=== PATIENT | female | born 1995 | race Caucasian/White ===

== ENCOUNTER 2021-10-03 18:04 | Day surgery (SDC) | payer BC ==
[2021-10-03] MEDS ORDERED: hydrALAZINE 20 MG/ML VIAL SLOW IVP PRN (18:32)
[2021-10-03 18:36] VITALS: BMI 37.2
== END 2021-10-03 19:20 | disposition home or self-care (01) ==
LOC: CSHLD/OP 18:04
PROVIDERS: ATTEND Obstetrics & Gynecology
DX: O99.891 Other specified diseases and conditions complicating pregnancy (principal); R07.9 Chest pain, unspecified; R06.02 Shortness of breath; R10.9 Unspecified abdominal pain; R19.7 Diarrhea, unspecified; M79.89 Other specified soft tissue disorders; Z3A.25 25 weeks gestation of pregnancy
CPT/HCPCS: 99282

== ENCOUNTER 2021-10-03 19:25 | Emergency (ER) | payer BC ==
[2021-10-03 20:15] LABS: #Eosinphils 0.1 10x3/uL (0.0-0.5); #Monocytes 0.5 10x3/uL (0.0-1.1); #Neutrophils 6.3 10x3/uL (1.5-8.4); %Basophils 0.3 % (0.0-2.0); %Eosinophils 0.5 % (0.0-6.0); %Lymphocytes 26.4 % (18.0-47.0); %Monocytes 5.4 % (0.0-10.0); %Neutrophils 67.1 % (40.0-75.0); Mean Corpuscular HGB CONC 34.6 g/dL (32.0-36.0); Mean Corpuscular Hemoglobin 30.1 pg (27.0-33.0); Mean Corpuscular Volume 87.1 fl (81.6-98.3); Mean Platelet Volume 9.8 fl (7.4-10.4); Platelet Count 279 10x3/uL (150-450); RBC Distribution Width 13.6 % (11.5-14.5); Red Blood Cell (RBC) Count 3.65 10x6/uL (3.90-5.03); White Blood Cell (WBC) Count 9.4 10x3/uL (3.5-10.5)
[2021-10-03 20:29] LABS: ALT (SGPT) 10 U/L (8-55); AST (SGOT) 11 U/L (5-34); Albumin 3.6 g/dL (3.5-5.0); Alkaline Phosphatase 76 U/L (40-110); Anion Gap 14 mmol/L (10-20); BUN (Urea Nitrogen) 6 mg/dL (7.0-18.7); Bilirubin, Total 0.2 mg/dL (0.2-1.2); Calc. Creatinine Clearance 0 mL/min (70-130); Calcium 8.9 mg/dL (7.8-10.44); Carbon Dioxide 24 mmol/L (22-29); Chloride 104 mmol/L (98-107); Globulin 2.7 g/dL (2.4-3.5); Glucose 99 mg/dL (70-105); Potassium 3.7 mmol/L (3.5-5.1); Protein, Total 6.3 g/dL (6.0-8.3); Sodium 138 mmol/L (136-145)
== END 2021-10-03 20:59 | disposition home or self-care (01) ==
LOC: CSHERS 19:25
DX: O99.891 Other specified diseases and conditions complicating pregnancy (principal); R06.02 Shortness of breath; Z3A.25 25 weeks gestation of pregnancy
CPT/HCPCS: 36415; 71045; 80053; 83880; 84484; 85025; 93005

== ENCOUNTER 2021-12-16 18:37 | Day surgery (SDC) | payer BC ==
[2021-12-16 19:15] VITALS: BMI 38.9
[2021-12-16] MEDS ORDERED: hydrALAZINE 20 MG/ML VIAL SLOW IVP PRN (19:38)
[2021-12-16] MEDS ORDERED: hydrOXYzine 25 MG TAB PO SCH (20:00)
[2021-12-16 20:28] LABS: Bilirubin Neg (Negative); Blood, Urine Negative (Negative); Clarity Clear (Clear); Glucose, Urine (Dipstick) Normal (Negative); Ketone, Urine 15 mg/dL (Negative); Leukocyte Negative (Negative); Nitrite Negative (Negative); Protein, Urine (Dipstick) Negative (Neg-Trace); Urobilinogen Normal mg/dL (Less than 2)
[2021-12-16 20:36] LABS: Bacteria/HPF None Seen HPF (None Seen); RBC/HPF 0-3 HPF (0-3); Squamous Epithelial None Seen HPF (0-3); Urine Culture Reflex No No; WBC/HPF 0-3 HPF (0-3)
[2021-12-16 20:43] LABS: ALT (SGPT) 8 U/L (8-55); AST (SGOT) 13 U/L (5-34); Albumin 3.2 g/dL (3.5-5.0); Alkaline Phosphatase 149 U/L (40-110); Anion Gap 15 mmol/L (10-20); BUN (Urea Nitrogen) 5 mg/dL (7.0-18.7); Bilirubin, Total 0.5 mg/dL (0.2-1.2); Calc. Creatinine Clearance 200 mL/min (70-130); Calcium 9.7 mg/dL (7.8-10.44); Carbon Dioxide 23 mmol/L (22-29); Chloride 103 mmol/L (98-107); Estimated GFR 124; Globulin 3.3 g/dL (2.4-3.5); Glucose 99 mg/dL (70-105); Potassium 3.6 mmol/L (3.5-5.1); Protein, Total 6.5 g/dL (6.0-8.3); Sodium 137 mmol/L (136-145)
== END 2021-12-16 22:25 | disposition home or self-care (01) ==
LOC: CSHLD/OP 18:37
PROVIDERS: ATTEND Obstetrics & Gynecology
DX: O26.893 Other specified pregnancy related conditions, third trimester (principal); L29.9 Pruritus, unspecified; O23.593 Infection of other part of genital tract in pregnancy, third trimester; N89.8 Other specified noninflammatory disorders of vagina; O36.8130 Decreased fetal movements, third trimester, not applicable or unspecified; O47.03 False labor before 37 completed weeks of gestation, third trimester; Z86.16 Personal history of COVID-19; Z79.82 Long term (current) use of aspirin; Z79.899 Other long term (current) drug therapy; Z3A.36 36 weeks gestation of pregnancy
CPT/HCPCS: 36415; 51701; 80053; 81001; 82239; 87480; 87510; 87660; 99284

== ENCOUNTER 2021-12-21 15:07 | Inpatient (IN) | payer BC ==
[~2021-12-21 15:07] MED LIST: Bupivacaine/Epinephrine 0.25% 30 ML VIAL ONE
[2021-12-21] MEDS ORDERED: Misoprostol 200 MCG TAB PR PRN (15:12)
[2021-12-21] MEDS ORDERED: Butorphanol Tartrate 1 MG/ML VIAL SLOW IVP PRN (15:12)
[2021-12-21] MEDS ORDERED: Acetaminophen 500 MG TAB PO PRN (15:12)
[2021-12-21] MEDS ORDERED: Ondansetron PF 4 MG/2 ML Vial IVP PRN (15:12)
[2021-12-21] MEDS ORDERED: Zolpidem Tartrate 5 MG TAB PO PRN (15:12)
[2021-12-21] MEDS ORDERED: hydrALAZINE 20 MG/ML VIAL SLOW IVP PRN (15:12)
[2021-12-21] MEDS ORDERED: Docusate 100 MG CAP PO PRN (15:12)
[2021-12-21] MEDS ORDERED: Ibuprofen 800 MG TAB PO PRN (15:12)
[2021-12-21] MEDS ORDERED: Diphenoxylate HCl/Atropine Tablet PO PRN ×2 (15:12)
[2021-12-21] MEDS ORDERED: Promethazine HCl 25 MG/ML VIAL IM PRN (15:12)
[2021-12-21] MEDS ORDERED: HYDROcodone/Acetaminophen 5/325 mg Tablet PO PRN ×2 (15:12)
[2021-12-21] MEDS ORDERED: Lidocaine 1% (PF) 30 ML VIAL SC PRN (15:12)
[2021-12-21] MEDS ORDERED: NS w/ Oxytocin 30 units 500 ML IV SCH ×2 (15:15)
[2021-12-21] MEDS ORDERED: hydrOXYzine Pamoate 25 mg Capsule PO PRN (15:21)
[2021-12-21] MEDS ORDERED: Penicillin G Potassium 5 MILL.UNITS in Sodium Chloride 0.9% 100 ML IVPB SCH (16:00)
[2021-12-21 16:03] VITALS: BMI 39.8
[2021-12-21] MEDS: Lactated Ringer's 1,000 ML IV SCH ×2 (16:30→17:18)
[2021-12-21] MEDS: Misoprostol 100 MCG TAB VAG SCH ×2 (17:01→20:26)
[2021-12-21 17:58] LABS: #Monocytes 0.6 10x3/uL (0.0-1.1); #Neutrophils 4.7 10x3/uL (1.5-8.4); %Basophils 0.3 % (0.0-2.0); %Eosinophils 0.4 % (0.0-6.0); %Lymphocytes 29.9 % (18.0-47.0); %Monocytes 7.2 % (0.0-10.0); %Neutrophils 61.7 % (40.0-75.0); Hemoglobin 9.6 g/dL (12.0-15.5); Mean Corpuscular HGB CONC 32.7 g/dL (32.0-36.0); Mean Corpuscular Hemoglobin 27.4 pg (27.0-33.0); Mean Corpuscular Volume 83.8 fl (81.6-98.3); Mean Platelet Volume 12.3 fl (7.4-10.4); Platelet Count 236 10x3/uL (150-450); RBC Distribution Width 13.7 % (11.5-14.5); Red Blood Cell (RBC) Count 3.51 10x6/uL (3.90-5.03); White Blood Cell (WBC) Count 7.7 10x3/uL (3.5-10.5)
[2021-12-21 18:06] LABS: ALT (SGPT) 8 U/L (8-55); AST (SGOT) 13 U/L (5-34); Albumin 3.1 g/dL (3.5-5.0); Alkaline Phosphatase 157 U/L (40-110); Bilirubin, Direct 0.1 mg/dL (0.1-0.3); Bilirubin, Total 0.3 mg/dL (0.2-1.2); Protein, Total 6.1 g/dL (6.0-8.3); Uric Acid 4.7 mg/dL (2.6-6.0)
[2021-12-21 18:24] LABS: Syphilis Antibody Nonreactive (Nonreactive); Syphilis Antibody Index 0.02 S/CO (<1.00 Non-Reactive)
[2021-12-21 18:31] LABS: HBSAg Index 0.21 S/CO (0-0.99); HIV (1/2) Antibody/Antigen Non-Reactive (NonReactive); HIV 1/2 INDEX 0.08 S/CO (<1.00); Hep B Surf Ag Non-Reactive S/CO (NonReactive)
[2021-12-21] MEDS ORDERED: Penicillin G 2.5 MILL.units 2.5 MILL.UNITS in Premix Bag 1 BAG IVPB SCH (20:00)
[2021-12-22] MEDS: Misoprostol 100 MCG TAB VAG SCH (01:42)
[2021-12-22] MEDS ORDERED: Fentanyl 2 mcg/Bup 0.1% Cadd 100 ML ONE ×2 (08:21→15:42)
[2021-12-22] MEDS ORDERED: Fentanyl 2 mcg/Bupivacaine 0.1% Cassette 100 ML EPIDURAL SCH (08:30)
[2021-12-22] MEDS ORDERED: Ondansetron PF 4 MG/2 ML Vial IVP PRN ×2 (08:30→18:26)
[2021-12-22] MEDS ORDERED: Naloxone HCl 0.4 mg/ml Vial IVP PRN ×2 (08:30)
[2021-12-22] MEDS ORDERED: Promethazine HCl 25 MG/ML VIAL IM PRN (08:30)
[2021-12-22] MEDS ORDERED: diphenhydrAMINE 50 MG/ML VIAL IVP PRN (08:30)
[2021-12-22] MEDS ORDERED: ePHEDrine Sulfate 50 MG/10 ML VIAL SLOW IVP PRN (08:30)
[2021-12-22] MEDS ORDERED: Acetaminophen 325 MG TAB PO PRN (08:30)
[2021-12-22] MEDS ORDERED: Lactated Ringer's 500 ML IV PRN (08:30)
[2021-12-22] MEDS ORDERED: Moisturizing Cream (Eucerin) 113 GM JAR TOP PRN (08:30)
[2021-12-22] MEDS ORDERED: Communication Order-Pharmacy FS SCH (08:30)
[2021-12-22] MEDS ORDERED: Fentanyl 100 MCG/2 ML VIAL ONE (16:58)
[2021-12-22] MEDS ORDERED: Preparation H Ointment 28 GM TUBE PR PRN (18:26)
[2021-12-22] MEDS ORDERED: Zolpidem Tartrate 5 MG TAB PO PRN (18:26)
[2021-12-22] MEDS ORDERED: Misoprostol 200 MCG TAB VAG PRN (18:26)
[2021-12-22] MEDS ORDERED: Bisacodyl 10 MG SUPP PR PRN (18:26)
[2021-12-22] MEDS ORDERED: diphenhydrAMINE 25 MG CAP PO PRN (18:26)
[2021-12-22] MEDS ORDERED: Benzocaine-Menthol 82.5 ML CAN TOP PRN (18:26)
[2021-12-22] MEDS ORDERED: HYDROcodone/Acetaminophen 5/325 mg Tablet PO PRN ×2 (18:26)
[2021-12-22] MEDS ORDERED: Milk Of Magnesia 30 ML UDCUP PO PRN (18:26)
[2021-12-22] MEDS ORDERED: Lanolin Ointment 7 GM TUBE TOP PRN (18:26)
[2021-12-22] MEDS ORDERED: Boostrix 0.5 ML (Tdap) VIAL (>/=7 yrs of age) IM ONE (18:26)
[2021-12-22] MEDS ORDERED: hydrALAZINE 20 MG/ML VIAL SLOW IVP PRN (18:26)
[2021-12-22] MEDS ORDERED: NS w/ Oxytocin 30 units 500 ML IV SCH (18:30)
[2021-12-22] MEDS: Docusate 100 MG CAP PO SCH (22:54)
[2021-12-22] MEDS: Ibuprofen 800 MG TAB PO SCH (22:54)
[2021-12-23] MEDS: Ibuprofen 800 MG TAB PO SCH ×3 (05:14→21:36)
[2021-12-23 05:28] LABS: Hemoglobin 8.4 g/dL (12.0-15.5); Mean Corpuscular HGB CONC 33.3 g/dL (32.0-36.0); Mean Corpuscular Hemoglobin 27.7 pg (27.0-33.0); Mean Corpuscular Volume 83.2 fl (81.6-98.3); Mean Platelet Volume 12.5 fl (7.4-10.4); Platelet Count 210 10x3/uL (150-450); RBC Distribution Width 13.9 % (11.5-14.5); Red Blood Cell (RBC) Count 3.03 10x6/uL (3.90-5.03); White Blood Cell (WBC) Count 12.1 10x3/uL (3.5-10.5)
[2021-12-23] MEDS: Prenatal Vitamin 1 TAB PO SCH (08:55)
[2021-12-23] MEDS: Docusate 100 MG CAP PO SCH ×2 (08:55→21:36)
[2021-12-23] MEDS: Ferrous Sulfate 325 MG TAB PO SCH ×2 (08:55→18:36)
[2021-12-24] MEDS: Ibuprofen 800 MG TAB PO SCH ×2 (05:46→13:36)
[2021-12-24] MEDS: Prenatal Vitamin 1 TAB PO SCH (08:49)
[2021-12-24] MEDS: Ferrous Sulfate 325 MG TAB PO SCH (08:49)
[2021-12-24] MEDS: Docusate 100 MG CAP PO SCH (08:49)
[2021-12-24 10:38] VITALS: TEMP 98.1
[2021-12-24 12:16] VITALS: BP 134/78
== END 2021-12-24 18:30 | disposition home or self-care (01) | DRG 805 ==
LOC: CSHLD 15:07 → CSHPP 12-22 21:45
PROVIDERS: ADMIT Obstetrics & Gynecology; ATTEND Obstetrics & Gynecology
PROC: 10907ZC Drainage of Amniotic Fluid, Therapeutic from Products of Conception, Via Natural or Artificial Opening (ICD-10-PCS; 2021-12-21)
PROC: 3E0P7VZ Introduction of Hormone into Female Reproductive, Via Natural or Artificial Opening (ICD-10-PCS; 2021-12-21)
PROC: 3E033VJ Introduction of Other Hormone into Peripheral Vein, Percutaneous Approach (ICD-10-PCS; 2021-12-21)
PROC: 10E0XZZ Delivery of Products of Conception, External Approach (ICD-10-PCS; principal; 2021-12-22)
PROC: 0KQM0ZZ Repair Perineum Muscle, Open Approach (ICD-10-PCS; 2021-12-22)
PROC: 0W8NXZZ Division of Female Perineum, External Approach (ICD-10-PCS; 2021-12-22)
PROC: 3E0334Z Introduction of Serum, Toxoid and Vaccine into Peripheral Vein, Percutaneous Approach (ICD-10-PCS; 2021-12-22)
DX: O26.893 Other specified pregnancy related conditions, third trimester (principal); K83.1 Obstruction of bile duct; Z37.0 Single live birth; D64.9 Anemia, unspecified; O99.02 Anemia complicating childbirth; F41.9 Anxiety disorder, unspecified; O99.344 Other mental disorders complicating childbirth; L29.9 Pruritus, unspecified; O99.72 Diseases of the skin and subcutaneous tissue complicating childbirth; Z67.41 Type O blood, Rh negative; Z3A.36 36 weeks gestation of pregnancy; Z86.16 Personal history of COVID-19; Z79.84 Long term (current) use of oral hypoglycemic drugs; O70.1 Second degree perineal laceration during delivery; O69.81X0 Labor and delivery complicated by cord around neck, without compression, not applicable or unspecified; O26.62 Liver and biliary tract disorders in childbirth
CPT/HCPCS: 36415; 51702; 80076; 83615; 84550; 85025; 85027; 85461; 86780; 86850; 86870; 86900; 86901; 87340; 87389; 90384; 96372; J0595; J2590; J7120

== ENCOUNTER 2022-11-22 10:37 | Emergency (ER) | payer BC ==
[2022-11-22 11:47] LABS: #Eosinphils 0.1 10x3/uL (0.0-0.5); #Monocytes 0.6 10x3/uL (0.0-1.1); #Neutrophils 4.3 10x3/uL (1.5-8.4); %Basophils 0.4 % (0.0-2.0); %Eosinophils 1.3 % (0.0-6.0); %Lymphocytes 36.4 % (18.0-47.0); %Monocytes 7.1 % (0.0-10.0); %Neutrophils 54.4 % (40.0-75.0); Hemoglobin 12.9 g/dL (12.0-15.5); Mean Corpuscular HGB CONC 32.1 g/dL (32.0-36.0); Mean Corpuscular Hemoglobin 26.3 pg (27.0-33.0); Mean Corpuscular Volume 81.9 fl (81.6-98.3); Mean Platelet Volume 9.5 fl (7.4-10.4); Platelet Count 358 10x3/uL (150-450); RBC Distribution Width 14.1 % (11.5-14.5); Red Blood Cell (RBC) Count 4.91 10x6/uL (3.90-5.03); White Blood Cell (WBC) Count 7.9 10x3/uL (3.5-10.5)
[2022-11-22 11:57] LABS: ALT (SGPT) 12 U/L (8-55); AST (SGOT) 16 U/L (5-34); Albumin 4.2 g/dL (3.5-5.0); Alkaline Phosphatase 87 U/L (40-110); Anion Gap 13 mmol/L (10-20); BUN (Urea Nitrogen) 7 mg/dL (7.0-18.7); Bilirubin, Total 0.3 mg/dL (0.2-1.2); Calc. Creatinine Clearance 0 mL/min (70-130); Calcium 9.6 mg/dL (7.8-10.44); Carbon Dioxide 25 mmol/L (22-29); Chloride 106 mmol/L (98-107); Estimated GFR 97; Globulin 2.8 g/dL (2.4-3.5); Glucose 103 mg/dL (70-105); Potassium 4.8 mmol/L (3.5-5.1); Sodium 139 mmol/L (136-145)
[2022-11-22] MEDS ORDERED: Ketorolac Tromethamine 30 MG/ML VIAL ONE (13:55)
[2022-11-22] MEDS ORDERED: Fleet Saline Enema 133 ML BOT PR SCH (14:00)
[2022-11-22 14:13] LABS: Bilirubin Neg (Negative); Blood, Urine Negative (Negative); Clarity Clear (Clear); Glucose, Urine (Dipstick) Normal (Negative); Ketone, Urine Negative (Negative); Leukocyte Negative (Negative); Nitrite Negative (Negative); Protein, Urine (Dipstick) Negative (Neg-Trace); Specific Gravity, Urine 1.015 (1.005-1.030); Urobilinogen Normal mg/dL (Less than 2)
[2022-11-22 14:15] LABS: Pregnancy Test - Urine (BHCG) Negative (Negative); Pregu Control Background? CLEAR/WHITE (CLR/WHITE); Pregu Control Bar Appear? YES (CONTROL BAR); Specific Gravity 1.015 (1.002-1.036)
[2022-11-22 14:25] LABS: Bacteria/HPF 2+ HPF (None Seen); CAUTI Indications for Culture Dysuria,urgency,freq; RBC/HPF 0-3 HPF (0-3); WBC/HPF 0-3 HPF (0-3)
[2022-11-22 14:26] LABS: Urine Culture Reflex No No
[2022-11-22] MEDS ORDERED: Mineral Oil ENEMA ONE (14:27)
[2022-11-22] MEDS ORDERED: Magnesium Citrate 300 ML BOT PO SCH (15:45)
== END 2022-11-22 11:50 | disposition home or self-care (01) ==
LOC: CSHERS 10:37
DX: K59.00 Constipation, unspecified (principal)
CPT/HCPCS: 74019; 80053; 81001; 81025; 85025; 96372; J1885

== ENCOUNTER 2025-04-16 20:56 | Emergency (ER) | payer OTHER, SELFPAY ==
[~2025-04-16 20:56] MED LIST changes: -Bupivacaine/Epinephrine 0.25% 30 ML VIAL ONE; +Iopamidol 300 61% 100 ML VIAL FS ONE
[2025-04-16 21:29] LABS: Glucose, Urine (Dipstick) Normal (Negative); Pregnancy Test - Urine (BHCG) Negative (Negative); Pregu Control Background? CLEAR/WHITE (CLR/WHITE); Pregu Control Bar Appear? YES (CONTROL BAR); Protein, Urine (Dipstick) 30 mg/dl (Neg-Trace); Specific Gravity, Urine 1.020 (1.005-1.030)
[2025-04-16 21:39] LABS: Leukocyte 100 (Negative)
[2025-04-16 21:40] LABS: CAUTI Indications for Culture Pelvic or flank pain
[2025-04-16 21:41] LABS: Bacteria/HPF 2+ HPF (None Seen)
[2025-04-16 21:43] LABS: Urine Culture Reflex No No
[2025-04-16 23:01] LABS: #Basophils Less than 0.03 10x3/uL (0.0-0.2); #Eosinophils 0.12 10x3/uL (0.0-0.5); #Monocytes 0.57 10x3/uL (0.0-1.1); #Neutrophils 7.41 10x3/uL (1.5-8.4); %Basophils 0.2 % (0.0-2.0); %Eosinophils 1.1 % (0.0-6.0); %Lymphocytes 23.1 % (18.0-47.0); %Monocytes 5.4 % (0.0-10.0); %Neutrophils 69.9 % (40.0-75.0); Hematocrit 41.3 % (34.9-44.5); Hemoglobin 14.1 g/dL (12.0-15.5); Mean Corpuscular Hemoglobin 28.3 pg (27.0-33.0); Mean Corpuscular Volume 82.8 fL (81.6-98.3); Platelet Count 369 10x3/uL (150-450); Red Blood Cell (RBC) Count 4.99 10x6/uL (3.90-5.03); White Blood Cell (WBC) Count 10.60 10x3/uL (3.5-10.5)
[2025-04-16 23:07] LABS: ALT (SGPT) 10 U/L (Less than 34); AST (SGOT) 17 U/L (11-34); Albumin 4.2 g/dL (3.1-4.5); Alkaline Phosphatase 63 U/L (40-110); Anion Gap 15 mmol/L (10-20); BUN (Urea Nitrogen) 7 mg/dL (7.0-18.7); Bilirubin, Total 0.4 mg/dL (0.3-1.2); Calc. Creatinine Clearance 0 mL/min (70-130); Calcium 9.5 mg/dL (7.8-10.44); Carbon Dioxide 22 mmol/L (22-29); Chloride 102 mmol/L (98-107); Globulin 3.0 g/dL (2.4-3.5); Glucose 107 mg/dL (70-105); Lipase 20 U/L (8-78); Potassium 3.2 mmol/L (3.5-5.1); Sodium 136 mmol/L (136-145)
[2025-04-16] MEDS ORDERED: Ondansetron PF 4 MG/2 ML Vial ONE (23:08)
== END 2025-04-17 00:49 | disposition home or self-care (01) ==
LOC: CSHERS 20:56
DX: R19.7 Diarrhea, unspecified (principal); R10.84 Generalized abdominal pain; E87.6 Hypokalemia; N39.0 Urinary tract infection, site not specified; E66.9 Obesity, unspecified
CPT/HCPCS: 74177; 80053; 81001; 81025; 83690; 85025; 96361; 96374; J2405; Q9967